=== PATIENT | female | born 1985 | race Two or more races ===

== ENCOUNTER 2017-05-20 11:53 | Emergency (ER) | payer SELFPAY ==
[~2017-05-20] VITALS: Ht 157.5 cm; Wt 74.8 kg
[2017-05-20 12:15] VITALS: BP 126/79
== END 2017-05-20 15:04 | disposition home or self-care (01) ==
LOC: ER 11:53
DX: J02.9 Acute pharyngitis, unspecified (principal)

== ENCOUNTER 2017-09-29 18:13 | Emergency (ER) | payer MEDICAID ==
[~2017-09-29] VITALS: Ht 144.8 cm; Wt 74.8 kg
[2017-09-29 18:42] VITALS: BP 111/73
== END 2017-09-29 20:13 | disposition home or self-care (01) ==
LOC: ER 18:13
DX: S93.402A Sprain of unspecified ligament of left ankle, initial encounter (principal); W18.39XA Other fall on same level, initial encounter; Y93.89 Activity, other specified; Y92.89 Other specified places as the place of occurrence of the external cause; Y99.8 Other external cause status
CPT/HCPCS: 73610

== ENCOUNTER 2017-10-29 21:53 | Emergency (ER) | payer MEDICAID ==
[~2017-10-29] VITALS: Ht 157.5 cm; Wt 74.8 kg
[2017-10-29 22:29] VITALS: BP 109/55
[2017-10-29 23:01] LABS: Urine Bacteria NONE SEEN /hpf (None Seen); Urine Blood 3+ /uL (Negative); Urine Mucus FEW (None Seen); Urine Specific Gravity 1.027 (1.001-1.035); Urine WBC 3 /hpf (0 - 5)
[2017-10-30] MEDS ORDERED: LIDOCAINE VISCOUS 2% 15ML UD ONE (00:08)
[2017-10-30] MEDS ORDERED: LIDOCAINE VISCOUS 2% 15ML UD PO ONE (00:15)
[2017-10-30] MEDS ORDERED: ALUM & MAG HYDROX-SIMETH LIQ(MAALOX) 30 ML PO ONE ×2 (00:15)
== END 2017-10-30 03:06 | disposition home or self-care (01) ==
LOC: ER 21:53
DX: J02.9 Acute pharyngitis, unspecified (principal); K20.9 Esophagitis, unspecified
CPT/HCPCS: 81001

== ENCOUNTER 2019-05-18 17:19 | Emergency (ER) | payer MEDICAID ==
[~2019-05-18] VITALS: Ht 127 cm; Wt 70.8 kg
[~2019-05-18 17:19] MED LIST: ATEN-60 PO
[2019-05-18 20:11] VITALS: BP 126/64
== END 2019-05-18 20:58 | disposition home or self-care (01) ==
LOC: ER 17:29
DX: M79.601 Pain in right arm (principal); M25.531 Pain in right wrist

== ENCOUNTER → 2019-10-24 | Emergency (ER) | payer MEDICAID ==
[~2019-10-24] VITALS: Ht 162.6 cm; Wt 86.2 kg
[~2019-10-24] MED LIST changes: +IBUP400T21 PO; +LORazepam 2MG/ML-1ML VIAL IV ONE; +NITR100C6 PO; +SODIUM CHLORIDE 0.9% 500 ML IV ONE; +VER180ST PO; +VERAPAMIL 2.5MG/ML INJ 2ML VIAL IV ONE
[2019-10-24 19:28] LABS: Basophils # (auto) 0 10 ^3/uL (0-0.2); Basophils % (auto) 0.4 % (0.0-2.0); Eosinophils # (auto) 0.1 10 ^3/uL (0-0.8); Eosinophils % (auto) 1.2 % (0.0-7.0); Hematocrit 39.8 % (36.0-46.0); Hemoglobin 13.2 g/dL (12.2-16.2); Lymphocytes # (auto) 3.6 10 ^3/uL (0.4-5.4); Lymphocytes % (auto) 42.4 % (10.0-50.0); Mean Corpuscular Hemoglobin 28.7 pg (28.0-32.0); Mean Corpuscular Hgb Conc. 33.2 g/dL (32.0-36.0); Mean Corpuscular Volume 86.5 fL (80.0-100.0); Monocytes # (auto) 0.6 10 ^3/uL (0-1.3); Monocytes % (auto) 6.9 % (0.0-12.0); Neutrophils # (auto) 4.1 10 ^3/uL (1.6-8.6); Neutrophils % (auto) 49.1 % (37.0-80.0); Nucleated Red Blood Cells % 0.2 %; Platelet Count (auto) 224 10^3/uL (140-450); Red Cell Distribution Width 13.1 % (11.8-14.3); White Blood Cell 8.4 10^3/uL (4.4-10.8)
[2019-10-24 19:45] LABS: Albumin 3.4 g/dL (3.4-5.0); Anion Gap 6 (5-15); Blood Urea Nitrogen 19 mg/dL (7-18); Calcium 7.1 mg/dL (8.5-10.1); Carbon Dioxide 24 mmol/L (21-32); Chloride 111 mmol/L (98-107); Glucose 112 mg/dL (74-106); Potassium 3.3 mmol/L (3.5-5.1); Sodium 141 mmol/L (136-145)
[2019-10-24 19:57] LABS: Alanine Aminotransferase 50 U/L (13-56); Alkaline Phosphatase 63 U/L (45-117); Aspartate Aminotransferase 54 U/L (15-37); BUN/Creatinine Ratio 20.2; Bilirubin, Total 0.3 mg/dL (0.2-1.0); GFR African American 89 mL/min; GFR Non-African American 73 mL/min; Total Protein 6.8 g/dL (6.4-8.2)
[2019-10-24 23:00] VITALS: BP 90/52
== END | disposition home or self-care (01) ==
LOC: EDUNIT# 18:50 → EDBD 18:58 → ER 18:58
DX: I47.1 Supraventricular tachycardia (principal); I25.2 Old myocardial infarction; Z79.899 Other long term (current) drug therapy
CPT/HCPCS: 36415; 80053; 84484; 85025; 93005; 96374; 96375; 99284; J2060; J7030; J7040

== ENCOUNTER 2020-01-29 22:41 | Inpatient (IN) | payer MEDICAID ==
[~2020-01-29] VITALS: Ht 167.6 cm; Wt 73.5 kg
[~2020-01-29 22:41] MED LIST changes: -IBUP400T21 PO; -LORazepam 2MG/ML-1ML VIAL IV ONE; -NITR100C6 PO; -SODIUM CHLORIDE 0.9% 500 ML IV ONE; -VER180ST PO; -VERAPAMIL 2.5MG/ML INJ 2ML VIAL IV ONE
[2020-01-29 23:13] LABS: Basophils # (auto) 0.1 10 ^3/uL (0-0.2); Basophils % (auto) 0.7 % (0.0-2.0); Eosinophils # (auto) 0 10 ^3/uL (0-0.8); Eosinophils % (auto) 0.4 % (0.0-7.0); Hematocrit 42.2 % (36.0-46.0); Hemoglobin 13.9 g/dL (12.2-16.2); Lymphocytes % (auto) 28.2 % (10.0-50.0); Mean Corpuscular Hemoglobin 28.7 pg (28.0-32.0); Mean Corpuscular Hgb Conc. 32.9 g/dL (32.0-36.0); Mean Corpuscular Volume 87.1 fL (80.0-100.0); Monocytes # (auto) 0.7 10 ^3/uL (0-1.3); Monocytes % (auto) 6.3 % (0.0-12.0); Neutrophils # (auto) 6.9 10 ^3/uL (1.6-8.6); Neutrophils % (auto) 64.4 % (37.0-80.0); Nucleated Red Blood Cells % 0.1 %; Platelet Count (auto) 225 10^3/uL (140-450); Red Blood Cells 4.85 10^6/uL (4.0-5.20); Red Cell Distribution Width 13.3 % (11.8-14.3); White Blood Cell 10.8 10^3/uL (4.4-10.8)
[2020-01-29 23:21] LABS: Urine Bacteria FEW /hpf (None Seen); Urine Blood Negative /uL (Negative); Urine Mucus FEW (None Seen); Urine Specific Gravity 1.006 (1.001-1.035); Urine WBC 95 /hpf (0 - 5)
[2020-01-29 23:31] LABS: Albumin 3.6 g/dL (3.4-5.0); Anion Gap 5 (5-15); BUN/Creatinine Ratio 26.2; Blood Urea Nitrogen 22 mg/dL (7-18); Calcium 8.3 mg/dL (8.5-10.1); Carbon Dioxide 25 mmol/L (21-32); Chloride 109 mmol/L (98-107); GFR African American 101 mL/min; GFR Non-African American 84 mL/min; Glucose 112 mg/dL (74-106); Potassium 4.2 mmol/L (3.5-5.1); Sodium 139 mmol/L (136-145)
[2020-01-29 23:34] LABS: Alcohol, Urine < 3.0 mg/dL (0-10); Amphetamine Screen, Urine NEGATIVE (NEGATIVE); Barbiturate Scree,Urine NEGATIVE (NEGATIVE); Benzodiazephine Screen, Urine NEGATIVE (NEGATIVE); Cannabinoid Screen, Urine NEGATIVE (NEGATIVE); Cocaine Screen, Urine NEGATIVE (NEGATIVE); Opiate Scree,Urine NEGATIVE (NEGATIVE); Phencyclidine Screen, Urine NEGATIVE (NEGATIVE)
[2020-01-29] MEDS ORDERED: ADENOSINE 6 MG/2 ML INJ IV ONE (23:38)
[2020-01-29] MEDS ORDERED: AMIODARONE HCL (50 MG/ ML) 3 ML VIAL IV ONE (23:38)
[2020-01-29 23:39] LABS: Alanine Aminotransferase 43 U/L (13-56); Alkaline Phosphatase 65 U/L (45-117); Aspartate Aminotransferase 27 U/L (15-37); Bilirubin, Total 0.4 mg/dL (0.2-1.0); Total Protein 7.6 g/dL (6.4-8.2)
[2020-01-29] MEDS ORDERED: LORazepam 2MG/ML-1ML VIAL ONE (23:45)
[2020-01-29] MEDS ORDERED: LORazepam 2MG/ML-1ML VIAL IV ONE (23:45)
[2020-01-29] MEDS ORDERED: AMIODARONE 450mg/250ml AE 250 ML IV ONE (23:52)
[2020-01-30] MEDS ORDERED: LORazepam 2MG/ML-1ML VIAL IV ONE
[2020-01-30] MEDS ORDERED: AMIODARONE 450mg/250ml AE 250 ML IV SCH (00:08)
[2020-01-30] MEDS ORDERED: AMIODARONE HCL 150 MG in D5W 5% 100 ML IV ONE (00:15)
[2020-01-30] MEDS ORDERED: ADENOSINE 6 MG/2 ML INJ IV ONE ×2 (00:15)
[2020-01-30] MEDS ORDERED: TEMAZEPAM 15 MG CAP PO PRN (02:30)
[2020-01-30] MEDS ORDERED: ONDANSETRON HCL 4 MG/2 ML VIAL IV PRN (02:30)
[2020-01-30] MEDS ORDERED: ACETAMINOPHEN 325 MG TAB PO PRN (02:30)
[2020-01-30] MEDS ORDERED: NITROGLYCERIN 0.4 MG SL TAB SL PRN (02:45)
[2020-01-30] MEDS ORDERED: MORPHINE SULF INJ 2 MG/ML SYRINGE 1ML IV PRN (02:45)
[2020-01-30] MEDS: cefTRIAXone 1GM/50ML D5W 50 ML IV SCH (04:00)
[2020-01-30] MEDS ORDERED: cefTRIAXone 1GM/50ML D5W 50 ML IV ONE (04:45)
--- NOTE | 2020-01-30 05:25 | NUR ---
Patient arrived to Unit Patient arrived via wheelchair. Patient A&Ox4. Patient educated on unit, room, bed, call light, and unit policies. Patient verbalized understanding. Tele#[id number]. Amiodarone still running. Patient having no signs and symptoms of distress. Safety measures maintained by keeping the bed locked in lowest position, 2 side rails up, call light within reach.
[2020-01-30 07:05] VITALS: BP 92/58
[2020-01-30 09:00] VITALS: BP 89/50
[2020-01-30] MEDS: VERAPAMIL HCL 180mg SR tab PO SCH (10:00)
[2020-01-30 13:00] VITALS: BP 98/56
[2020-01-30] MEDS ORDERED: SODIUM CHLORIDE 0.9% 1,000 ML IV ONE (14:15)
[2020-01-30 16:30] VITALS: BP 96/50
--- NOTE | 2020-01-30 17:46 | NUR ---
URINE SAMPLE COLLECTED AND SENT TO LAB.
--- NOTE | 2020-01-30 17:47 | NUR ---
NEW ORDER FOR IV NS AT 75ML/HR INITIATED.
[2020-01-30] MEDS: FAMOTIDINE 20 MG TAB PO SCH ×2 (18:01→21:27)
--- NOTE | 2020-01-30 19:21 | NUR ---
ENDORSED CARE TO NIGHT RN. PER DR DUARTE NOTE PATIENT OK TO DISCHARGE TOMORROW.
--- NOTE | 2020-01-30 20:00 | NUR ---
Opening Shift Note Assumed care of patient. Pt is sleeping in bed with no S/S of distress/SOB or pain. Pt is on room air with even and unlabored respirations. Bed locked, in lowest position, call light with reach, side rails up x2. Will continue to monitor for changes Q1hr and PRN.
[2020-01-30 21:45] VITALS: BP 99/58
[2020-01-31 04:44] VITALS: BP 99/54
[2020-01-31 05:39] LABS: Basophils # (auto) 0 10 ^3/uL (0-0.2); Basophils % (auto) 0.4 % (0.0-2.0); Eosinophils # (auto) 0 10 ^3/uL (0-0.8); Eosinophils % (auto) 0.5 % (0.0-7.0); Hematocrit 40.5 % (36.0-46.0); Hemoglobin 13.2 g/dL (12.2-16.2); Lymphocytes # (auto) 2.8 10 ^3/uL (0.4-5.4); Lymphocytes % (auto) 32.9 % (10.0-50.0); Mean Corpuscular Hemoglobin 28.7 pg (28.0-32.0); Mean Corpuscular Hgb Conc. 32.6 g/dL (32.0-36.0); Monocytes # (auto) 0.7 10 ^3/uL (0-1.3); Neutrophils % (auto) 58.2 % (37.0-80.0); Nucleated Red Blood Cells % 0.1 %; Platelet Count (auto) 216 10^3/uL (140-450); Red Cell Distribution Width 13.1 % (11.8-14.3); White Blood Cell 8.5 10^3/uL (4.4-10.8)
[2020-01-31 06:10] LABS: BUN/Creatinine Ratio 17.6; Potassium 3.9 mmol/L (3.5-5.1)
--- NOTE | 2020-01-31 07:30 | NUR ---
OPENING SHIFT NOTE Assumed care of patient, awake and alert. No S/S of distress/SOB or pain. Instructed on POC and to call for assist PRN, will continue to monitor for changes Q1hr and PRN. Patient in the lowest possible position with call light within reach.
[2020-01-31 08:30] VITALS: BP 99/53
[2020-01-31] MEDS: cefTRIAXone 1GM/50ML D5W 50 ML IV SCH (09:00)
[2020-01-31] MEDS ORDERED: NITR100C6 PO (09:53)
[2020-01-31] MEDS: VERAPAMIL HCL 180mg SR tab PO SCH (10:00)
[2020-01-31] MEDS ORDERED: IBUP400T21 PO (10:35)
[2020-01-31] MEDS ORDERED: VER180ST PO (10:35)
[2020-01-31] MEDS: FAMOTIDINE 20 MG TAB PO SCH (11:32)
[2020-01-31 13:10] VITALS: BP 103/62
--- NOTE | 2020-01-31 14:37 | NUR ---
Discharge instructions given as ordered. Encourage to follow up with PMD as instructed. All questions and concerns addressed. Patient verbalized understanding. Medication reconciliation form completed and copy given to patient. IV removed with catheter intact, pressure dressing applied. Telemetry unit returned to ICU. Patient left with all personal belongings, accompanied by staff and family member. No distress noted at time of departure.
--- NOTE | 2020-01-31 15:14 | NUR ---
PT'S PRIVATE TRANSPORTATION ARRIVED. PT LEFT ROOM WITH BELONGINGS AND DC PAPERWORK.
== END 2020-01-31 15:20 | disposition home or self-care (01) | DRG 201 ==
LOC: EDBD 22:41 → ER 22:41 → TELE 22:42 → TELE-WESTW 01-30 05:25
PROVIDERS: ADMIT Nurse Practitioner; ATTEND Internal Medicine
DX: I47.1 Supraventricular tachycardia (principal); N39.0 Urinary tract infection, site not specified; E78.5 Hyperlipidemia, unspecified; Z83.3 Family history of diabetes mellitus; Z82.49 Family history of ischemic heart disease and other diseases of the circulatory system
CPT/HCPCS: 36415; 71045; 80048; 80053; 80307; 81001; 84443; 84484; 85025; 85379; 87086; 93005; G0378; J0153; J0696; J7060

== ENCOUNTER 2020-10-07 14:38 | Emergency (ER) | payer MEDICAID ==
[~2020-10-07] VITALS: Ht 152.4 cm; Wt 70.8 kg
[~2020-10-07 14:38] MED LIST changes: -ATEN-60 PO; +IBUP400T22 PO; +NITR100C6 PO; +VER180ST PO
[2020-10-07 14:39] VITALS: BP 112/72
== END 2020-10-07 15:59 | disposition home or self-care (01) ==
LOC: ER 14:38
DX: I47.1 Supraventricular tachycardia (principal); Z76.0 Encounter for issue of repeat prescription

== ENCOUNTER 2021-01-05 17:35 | Emergency (ER) | payer MEDICAID ==
[~2021-01-05] VITALS: Ht 157.5 cm; Wt 74.8 kg
[2021-01-05 21:19] VITALS: BP 107/63
== END 2021-01-05 21:24 | disposition home or self-care (01) ==
LOC: ER 17:45
DX: I47.1 Supraventricular tachycardia (principal); Z76.0 Encounter for issue of repeat prescription; Z79.899 Other long term (current) drug therapy